=== PATIENT | male | born 1940 | race Caucasian/White ===

== ENCOUNTER 2018-12-29 07:57 | Observation (INO) ==
--- NOTE | 2018-12-12 12:14 | PAT Medication Instructions ---
Medication Instructions Date of Service December 12, 2018 Home Medications aspirin [Aspir-81] 81 mg PO DAILY benazepril 40 mg PO QPM cholecalciferol (vitamin D3) 1,000 unit PO QAM cyanocobalamin (vitamin B-12) 1,000 mcg PO DAILY finasteride 5 mg PO QAM fluticasone-salmeterol [Advair 1 inh INHALATION DAILY hydrochlorothiazide 12.5 mg PO QAM labetalol 100 mg PO BID sgpmfrwa-vic-AT-lycopen-lutein 1 tab PO DAILY omega 3-yhi-hrq-fish oil [Fish Oil] 1 cap PO DAILY simvastatin 40 mg PO PM tamsulosin [Flomax] 0.4 mg PO QAM ASK your prescriber and surgeon aspirin [Aspir-81] 81 mg PO DAILY STOP taking 2 weeks before surgery (or as soon as possible if surgery is within 2 weeks) omega 5-uuv-nge-fish oil [Fish Oil] 1 cap PO DAILY DO NOT take the morning of surgery cholecalciferol (vitamin D3) 1,000 unit PO QAM cyanocobalamin (vitamin B-12) 1,000 mcg PO DAILY hydrochlorothiazide 12.5 mg PO QAM multivit 1 tab PO DAILY Take morning of surgery With a small sip of water, OTHERWISE NOTHING TO EAT OR DRINK AFTER MIDNIGHT: tamsulosin [Flomax] 0.4 mg PO QAM Take evening before surgery benazepril 40 mg PO QPM fluticasone-salmeterol [Advair 1 inh INHALATION DAILY labetalol 100 mg PO BID simvastatin 40 mg PO PM Other Notes If you have any questions please call us at [phone] or [phone] or [phone] or [phone]
--- NOTE | 2018-12-12 12:18 | Anesthesiology Consultation ---
Date of Service December 12, 2018 Assessment & Plan (1) Encounter for pre-operative examination: Chart Review Chart Review: Patient seen in Pre Admission Testing Teaching & Discussion Pre-Anesthesia Teaching/Discussion Notes: Instructed NPO after midnight before surgery,except medications with 15 cc of water. Medication instructions provided according to the PAT guidelines. History Surgery Operation Date: 12/29/18 07:15 Proposed Procedures p Transurethral Resection of the Prostate - Shar Comer MD Height/Weight Height: 5 ft 6 in Weight: 74.389 kg Allergies Allergy/AdvReac Type Severity Reaction Status Date / Time No Known Allergies Allergy Verified 12/10/18 13:33 Medications Home Medications Medication Instructions Recorded Confirmed Last Taken aspirin [Aspir-81] 81 mg PO DAILY 12/10/18 12/10/18 Unknown benazepril 40 mg PO QPM 12/10/18 12/10/18 Unknown cholecalciferol (vitamin D3) 1,000 unit PO QAM 12/10/18 12/10/18 Unknown [Vitamin D3] cyanocobalamin (vitamin B-12) 1,000 mcg PO DAILY 12/10/18 12/10/18 Unknown [Vitamin B-12] finasteride 5 mg PO QAM 12/10/18 12/10/18 Unknown fluticasone-salmeterol [Advair 1 inh INHALATION DAILY 12/10/18 12/10/18 Unknown Diskus] hydrochlorothiazide 12.5 mg PO QAM 12/10/18 12/10/18 Unknown labetalol 100 mg PO BID 12/10/18 12/10/18 Unknown optfrulz-jwn-DF-lycopen-lutein 1 tab PO DAILY 12/10/18 12/10/18 Unknown [Centrum Silver Men] omega 7-ahh-yqi-fish oil [Fish Oil] 1 cap PO DAILY 12/10/18 12/10/18 Unknown simvastatin 40 mg PO PM 12/10/18 12/10/18 Unknown tamsulosin [Flomax] 0.4 mg PO QAM 12/10/18 12/10/18 Unknown Past Medical History Medical History Asthma STABLE Enlarged prostate History of kidney stones Hyperlipidemia Hypertension Past Surgical History Surgical History History of colonoscopy History of prostate surgery LASER History of shoulder surgery RIGHT ROTATOR CUFF TEAR Social History Smoking Status: Former smoker tobacco type: cigarettes Smoking cigarettes per day: QUIT 60 YRS AGO Do You Dip or Chew Tobacco: Yes (1 PACK WEEK - ADVISED NPO) Hx Alcohol Use: Yes Alcohol type: beer alcohol intake frequency: 0-2 drinks per day Hx Substance Use: No substance use type: does not use
--- NOTE | 2018-12-12 12:53 | Anesthesiology Consultation ---
Date of Service December 12, 2018 Assessment & Plan (1) Encounter for pre-operative examination: Chart Review Chart Review: Acceptable Risk for Surgery and Patient seen in Pre Admission Testing Consults Requested none Teaching & Discussion Pre-Anesthesia Teaching/Discussion Notes: Instructed NPO after midnight before surgery, except medications with 15 cc of water. Medication instructions provided according to the PAT guidelines. History Surgery Operation Date: 12/29/18 07:15 Proposed Procedures p Transurethral Resection of the Prostate - Shar Comer MD Height/Weight Height: 5 ft 6 in Weight: 72.1 kg Allergies Allergy/AdvReac Type Severity Reaction Status Date / Time No Known Allergies Allergy Verified 12/10/18 13:33 Medications Home Medications Medication Instructions Recorded Confirmed Last Taken aspirin [Aspir-81] 81 mg PO DAILY 12/10/18 12/10/18 Unknown benazepril 40 mg PO QPM 12/10/18 12/10/18 Unknown cholecalciferol (vitamin D3) 1,000 unit PO QAM 12/10/18 12/10/18 Unknown [Vitamin D3] cyanocobalamin (vitamin B-12) 1,000 mcg PO DAILY 12/10/18 12/10/18 Unknown [Vitamin B-12] finasteride 5 mg PO QAM 12/10/18 12/10/18 Unknown fluticasone-salmeterol [Advair 1 inh INHALATION DAILY 12/10/18 12/10/18 Unknown Diskus] hydrochlorothiazide 12.5 mg PO QAM 12/10/18 12/10/18 Unknown labetalol 100 mg PO BID 12/10/18 12/10/18 Unknown jixiexeb-wxf-JQ-lycopen-lutein 1 tab PO DAILY 12/10/18 12/10/18 Unknown [Centrum Silver Men] omega 9-naj-uuz-fish oil [Fish Oil] 1 cap PO DAILY 12/10/18 12/10/18 Unknown simvastatin 40 mg PO PM 12/10/18 12/10/18 Unknown tamsulosin [Flomax] 0.4 mg PO QAM 12/10/18 12/10/18 Unknown Past Medical History Medical History Asthma STABLE Enlarged prostate History of kidney stones Hyperlipidemia Hypertension Past Surgical History Surgical History H/O meniscectomy of right knee LEFT KNEE, NOT RIGHT History of colonoscopy History of prostate surgery LASER History of shoulder surgery RIGHT ROTATOR CUFF TEAR Past Anesthesia History No Hx of Anesthesia Complications and No Family Hx of Anesthesia Complications History of PONV No Motion Sickness Screening History of Motion Sickness: No Social History Smoking Status: Former smoker tobacco type: cigarettes Smoking cigarettes per day: QUIT 60 YRS AGO (when in service) Do You Dip or Chew Tobacco: Yes (1 PACK WEEK - ADVISED NPO) Hx Alcohol Use: Yes Alcohol type: beer alcohol intake frequency: 0-2 drinks per day Hx Substance Use: No substance use type: does not use Exercise / Class Metabolic Activity II 4-5 Yardwork/Stairs/Walk up hill (Walks 2-3 miles per day. Able to walk FOS. Denies CP or SOB. ) Review of Systems Patient denies chest pain, shortness of breath, dyspnea on exertion, joint pain , reflux, cough, palpitations. +wheezing Physical Exam Vital Signs BP: 144/80 P: 67 R: 18 T: 97.7 SPO2: 96% on RA ENMT Mouth: + poor dentition Thyromental Distance: > or= 3.5 Finger Breadths (4) Mallampati Class: II Neck normal visual inspection and trachea midline; neck extension not limited Respiratory normal respiratory effort Auscultation: lungs clear to auscultation bilaterally Cardiovascular Rate/Rhythm: regular rate and regular rhythm Heart Sounds: no murmur Vessels: no carotid bruit Neurologic moves all extremities Psychiatric Orientation: alert and oriented x 3 Testing Electrocardiogram Date: 12/12/18 Findings: + NSR @ (65) and + RBBB Chest X-Ray Date: 12/12/18 Findings: + NAD FINDINGS: Mild emphysematous change. Lungs are clear. Diaphragms are smooth. No significant cardiac enlargement. IMPRESSION: No acute process. Mild emphysematous change. Laboratory Results 12/12/18 13:11 12/12/18 13:11 Urine Color Yellow 12/12/18 13:11 Urine Appearance Clear (Clear) 12/12/18 13:11 Urine pH 6.5 (4.5-7.5) 12/12/18 13:11 Ur Specific [place] 1.025 (1.000-1.030) 12/12/18 13:11 Urine Protein Trace (Negative) H 12/12/18 13:11 Urine Glucose (UA) Negative (Negative) 12/12/18 13:11 Urine Ketones Negative (Negative) 12/12/18 13:11 Urine Nitrite Negative (Negative) 12/12/18 13:11 Ur Leukocyte Esterase Negative (Negative) 12/12/18 13:11 Urine RBC >30 /hpf (0-4) H 12/12/18 13:11 Urine WBC 0-5 /hpf (0-5) 12/12/18 13:11 Ur Epithelial Cells 0-5 /lpf (0-5) 12/12/18 13:11 12/12/18 13:11 Urine Culture - Final Urine,Clean Catch Gram negative bacilli
--- NOTE | 2018-12-12 13:37 | XRay Report ---
XR chest Pre-admission PA/Lat CLINICAL HISTORY: pat preoperative evaluation COMPARISON STUDY: No previous studies for comparison. FINDINGS: Mild emphysematous change. Lungs are clear. Diaphragms are smooth. No significant cardiac e nlargement. IMPRESSION: No acute process. Mild emphysematous change. The above report was generated using voice recognition software. It may contain grammatical, syntax or spelling errors. Electronically signed by: Alireza Sen M.D. 12/12/2018 1:35 PM
[2018-12-12 14:03] LABS: Basophils # (auto) 0.06 K/uL (0-0.2); Basophils % (auto) 0.6 %; Eosinophils # (auto) 0.28 K/uL (0-0.5); Hematocrit (blood only) 40.9 % (42-52); Hemoglobin 13.8 g/dL (14.0-18.0); Immature Granulocytes # (auto) 0.03 K/uL (0.00-0.02); Immature Granulocytes % (auto) 0.3 %; Lymphocytes # (auto) 1.05 K/uL (1.2-3.4); Lymphocytes % (auto) 11.3 %; Mean Corpuscular Hgb Conc 33.7 g/dL (32-36); Mean Corpuscular Volume 88.7 fL (80-100); Mean Platelet Volume 10.3 fL (7.4-10.4); Monocytes # (auto) 1.22 K/uL (0.11-0.59); Monocytes % (auto) 13.1 %; Neutrophils # (auto) 6.68 K/uL (1.4-6.5); Neutrophils % (auto) 71.7 %; Platelet Count 197 K/uL (130-400); RDW Coefficient of Variation 15.1 % (11.5-14.5); Red Blood Count 4.61 M/uL (4.7-6.1); White Blood Count 9.32 K/uL (4.8-10.8)
[2018-12-12 14:06] LABS: Appearance Urine Clear (Clear); Bilirubin Urine Negative (Negative); Color Urine Yellow; Glucose Urine UA Negative (Negative); Ketones Urine Negative (Negative); Leukocyte Esterase Urine Negative (Negative); Nitrite Urine Negative (Negative); Protein Urine Trace (Negative); Specific Gravity Urine 1.025 (1.000-1.030); Urobilinogen Urine Negative (Negative); pH Urine 6.5 (4.5-7.5)
[2018-12-12 14:19] LABS: RBC Urine >30 /hpf (0-4)
[2018-12-12 14:20] LABS: Bacteria Urine 1+ (Negative); WBC Urine 0-5 /hpf (0-5)
[2018-12-12 14:22] LABS: BUN Creatinine Ratio 20.7 (10-20); Calcium 9.5 mg/dl (8.5-10.1); Creatinine Clr Calc Pharmacy 50.3 ml/min; Est GFR (African American) 73.8; Est GFR (Non-African American) 63.7; Potassium 4.3 mmol/L (3.5-5.1)
[2018-12-12 14:23] LABS: Sperm Urine Present (None Prsent)
[~2018-12-29 07:57] MED LIST: CIPROFLOXACIN 400 MG/200 ML BAG IV SCH; LR 15ML/HR IV SCH
[2018-12-29] MEDS ORDERED: PHENYLEPHRINE 100MCG/ML 5ML SYR IV PRN (08:24)
[2018-12-29] MEDS ORDERED: ePHEDrine sulfate 50 MG/ML AMP IV PRN (08:24)
[2018-12-29] MEDS ORDERED: ONDANSETRON INJ 2 MG/ML 2 ML VIAL IV PRN ×2 (08:24→10:46)
[2018-12-29] MEDS ORDERED: HYDROmorphone INJ 1 MG/ML SYRINGE IV PRN (08:24)
[2018-12-29] MEDS ORDERED: ATROPINE SULFATE 0.1 MG/ML 10ML SYR IV PRN (08:24)
[2018-12-29] MEDS ORDERED: fentaNYL citrate 100 MCG/2 ML VIAL ONE (08:56)
[2018-12-29] MEDS ORDERED: PROPOFOL IV EMULSION 10 MG/ML 20 ML VIAL IV ONE (08:56)
[2018-12-29] MEDS ORDERED: MIDAZOLAM HCL 1 MG/ML 2ML VIAL ONE (08:56)
[2018-12-29] MEDS ORDERED: DEXAMETHASONE SOD INJ 4 MG/ML VIAL ONE (08:56)
[2018-12-29] MEDS ORDERED: ONDANSETRON INJ 2 MG/ML 2 ML VIAL ONE (08:56)
[2018-12-29] MEDS ORDERED: LIDOCAINE HCL 2% 2 ML VIAL/AMP(20MG/ML) INFIL ONE (08:56)
--- NOTE | 2018-12-29 08:59 | History & Physical Bridge Note ---
Date of Service December 29, 2018 History & Physical Bridge Note I have examined the patient, reviewed the History & Physical and in the interval since the performance of the History & Physical I have noted the following changes of clinical significance: no changes noted
--- NOTE | 2018-12-29 10:31 | Operative Report ---
Post Operative Report Pre & Post Diagnosis Operation Date: 12/29/18 09:15 Pre-Op Diagnosis: Benign Prostatic Hyperplasia with Urinary Obstruct Post-Op Diagnosis: Benign Prostatic Hyperplasia with Urinary Obstruct Procedure Operation Date: 12/29/18 09:15 Actual Procedures p Transurethral Resection of the Prostate(Not Applicable) - Shar Comer MD Surgeon Abraham Comer MD Info Analyst none Estimated Blood Loss 0 Findings Consistent with Post-Op Diagnosis Specimens None Description of Procedure Patient was identified in the preoperative holding area, appropriate informed consents reviewed and completed and the patient was transported to the operating suite. Upon arrival achieved appropriate preoperative antibiotics in the form of ciprofloxacin. Adequate general anesthesia was achieved, and the patient was placed in dorsal lithotomy position. Following sterile prep and drape and removal of his Hanna catheter, I inserted a 27 Danish resectoscope with 30 degree lens. Inspection revealed a healthy-appearing urethra. Upon reaching the sphincter, there began to be a notable scarring and inflammation from the catheter as well as his prior surgery. I was not able to readily identify the verumontanum, but I did note a large false passage protruding posteriorly that was well epithelialized and healed. I was able to identify significant redundant growth of the lateral lobes of the prostate as well as a tight and high bladder neck. Inspection of the bladder revealed no evidence of mucosal abnormalities aside from minor catheter cystitis. Following my inspection, I began by opening the lateral lobes of the prostate as well as the bladder neck - I chose to utilize a button electrode for vaporization. This generally improved visualization. I then worked to resect the predominant regrowth of the posterior floor of the prostate. As I flatten this out I attempted to try to flatten the area of the prior false passage, however this was not able to be fully achieved. It almost seems as though his posterior aspect of the lateral lobes is fused, and I am able to visualize the verumontanum underneath these areas but this is within what appears to now be a false passage. I flatten this maximally to allow catheter placement without difficulty, and I avoid encroachment upon the sphincter. After opening this maximally, I ensured meticulous hemostasis before concluding the case. I then inserted a 22 Danish catheter without difficulty. I irrigated the catheter to ensure that it was truly in the bladder and not within the false passage. I then concluded the case and the patient was extubated and taken to the PACU in stable condition. There were no complications. I attest to the content of the Intraoperative Record and any orders documented therein. Any exceptions are noted below.
[2018-12-29] MEDS ORDERED: HYDROCODONE/ACETAMOPHEN 5/325MG TAB PO PRN ×2 (10:46)
[2018-12-29] MEDS ORDERED: ACETAMINOPHEN 325 MG TAB PO PRN (10:46)
[2018-12-29] MEDS: fentaNYL citrate 100 MCG/2 ML VIAL IV PRN ×4 (11:03→11:27)
[2018-12-29 11:25] LABS: Basophils # (auto) 0.04 K/uL (0-0.2); Basophils % (auto) 0.4 %; Eosinophils # (auto) 0.27 K/uL (0-0.5); Eosinophils % (auto) 2.7 %; Hematocrit (blood only) 39.4 % (42-52); Immature Granulocytes # (auto) 0.05 K/uL (0.00-0.02); Immature Granulocytes % (auto) 0.5 %; Lymphocytes # (auto) 0.64 K/uL (1.2-3.4); Lymphocytes % (auto) 6.5 %; Mean Corpuscular Volume 89.7 fL (80-100); Mean Platelet Volume 9.8 fL (7.4-10.4); Monocytes # (auto) 0.77 K/uL (0.11-0.59); Monocytes % (auto) 7.8 %; Neutrophils # (auto) 8.12 K/uL (1.4-6.5); Neutrophils % (auto) 82.1 %; Platelet Count 155 K/uL (130-400); RDW Coefficient of Variation 15.2 % (11.5-14.5); RDW Standard Deviation 49.8 fL (36.4-46.3); Red Blood Count 4.39 M/uL (4.7-6.1); White Blood Count 9.89 K/uL (4.8-10.8)
[2018-12-29 11:40] LABS: BUN Creatinine Ratio 18.6 (10-20); Calcium 8.8 mg/dl (8.5-10.1); Creatinine Clr Calc Pharmacy 50.3 ml/min; Est GFR (African American) 73.8; Est GFR (Non-African American) 63.7; Potassium 4.2 mmol/L (3.5-5.1)
--- NOTE | 2018-12-29 11:52 | Anesthesiology Progress Note ---
Date of Service December 29, 2018 Anesthesia Post Procedure Vital Signs Vital Signs: Temp Pulse Pulse Resp BP BP Pulse Ox 12/29/18 11:45 63 12 146/82 H 98 12/29/18 11:35 36.4 C L 61 21 174/85 H 98 12/29/18 11:25 56 L 18 152/79 H 98 12/29/18 11:15 64 14 139/83 99 12/29/18 11:05 67 16 159/94 H 98 12/29/18 10:55 75 16 155/97 H 98 12/29/18 10:45 72 14 147/94 H 100 12/29/18 10:35 36.2 C L 82 12 151/77 H 99 12/29/18 08:17 36.6 C 67 20 171/85 H 95 Pain Intensity Penis: Pain Intensity: 4 Notes Mental Status: alert / awake / arousable Patient Amnestic to Procedure: Yes Nausea / Vomiting: adequately controlled Pain: adequately controlled Airway Patency, RR, SpO2: stable & adequate BP & HR: stable & adequate Hydration State: stable & adequate Anesthetic Complications: no major complications apparent
[2018-12-29] MEDS: LACTATED RINGER'S 1,000 ML IV SCH (13:50)
[2018-12-29] MEDS: LABETALOL HCL 100 MG TAB PO SCH (20:48)
[2018-12-29] MEDS ORDERED: SIMVASTATIN 40 MG TAB PO SCH (21:00)
[2018-12-29] MEDS ORDERED: ENALAPRIL MALEATE 10 MG TAB PO SCH (21:00)
[2018-12-29] MEDS: CIPROFLOXACIN 400 MG/200 ML BAG IV SCH (21:01)
[2018-12-30] MEDS: LACTATED RINGER'S 1,000 ML IV SCH (04:54)
--- NOTE | 2018-12-30 08:07 | Urology Progress Note ---
Date of Service December 30, 2018 Assessment & Plan (1) Urinary retention due to benign prostatic hyperplasia: POD#1 s/p TURP for urinary retention - VT now - home later presuming he voids well Subjective No issues overnight urine cleared appropriately no discomfort or pain Physical Exam 2 Vital Signs (Past 24 Hours): Last Vital Signs Temp 37.1 C 12/30/18 07:31 Pulse 72 12/30/18 07:31 Resp 18 12/30/18 07:31 BP 159/86 H 12/30/18 07:31 Pulse Ox 94 12/30/18 07:31 Physical Exam: NAD AAOx3 no resp distress rrr abd soft urine clear in tubing
--- NOTE | 2018-12-30 08:08 | Anesthesiology Progress Note ---
Date of Service December 30, 2018 Anesthesia Post Procedure Vital Signs Vital Signs: Temp Pulse Pulse Pulse Resp BP BP 12/30/18 07:31 37.1 C 72 18 159/86 H 156/88 H 12/30/18 03:15 36.5 C 71 16 141/74 H 12/29/18 22:55 36.6 C 77 16 139/71 12/29/18 20:39 93 H 155/69 H 12/29/18 19:05 36.9 C 92 H 16 151/65 H 12/29/18 15:00 37.1 C 90 18 151/75 H 12/29/18 14:00 82 16 128/67 12/29/18 12:56 75 16 140/74 12/29/18 12:33 69 16 165/80 H 12/29/18 12:00 36.9 C 66 14 151/79 H 12/29/18 11:45 63 12 146/82 H 12/29/18 11:35 36.4 C L 61 21 174/85 H 12/29/18 11:25 56 L 18 152/79 H 12/29/18 11:15 64 14 139/83 12/29/18 11:05 67 16 159/94 H 12/29/18 10:55 75 16 155/97 H 12/29/18 10:45 72 14 147/94 H 12/29/18 10:35 36.2 C L 82 12 151/77 H 12/29/18 08:17 36.6 C 67 20 171/85 H Pulse Ox 12/30/18 07:31 94 12/30/18 03:15 96 12/29/18 22:55 94 12/29/18 20:39 12/29/18 19:05 93 12/29/18 15:00 93 12/29/18 14:00 94 12/29/18 12:56 94 12/29/18 12:33 95 12/29/18 12:00 97 12/29/18 11:45 98 12/29/18 11:35 98 12/29/18 11:25 98 12/29/18 11:15 99 12/29/18 11:05 98 12/29/18 10:55 98 12/29/18 10:45 100 12/29/18 10:35 99 12/29/18 08:17 95 Pain Intensity Penis: Pain Intensity: 1 Lower Abdomen: Pain Intensity: 1 Notes Mental Status: alert / awake / arousable and participated in evaluation Nausea / Vomiting: adequately controlled Pain: adequately controlled Airway Patency, RR, SpO2: stable & adequate BP & HR: stable & adequate Hydration State: stable & adequate Anesthetic Complications: Pt Satisfied with anesthetic care
[2018-12-30 08:40] LABS: Hematocrit (blood only) 39.7 % (42-52); Hemoglobin 13.5 g/dL (14.0-18.0); Mean Corpuscular Volume 88.8 fL (80-100); Platelet Count 159 K/uL (130-400); RDW Coefficient of Variation 15.1 % (11.5-14.5); Red Blood Count 4.47 M/uL (4.7-6.1); White Blood Count 16.92 K/uL (4.8-10.8)
[2018-12-30] MEDS ORDERED: hydroCHLOROthiazide 25 MG TAB PO SCH (09:00)
[2018-12-30] MEDS ORDERED: FLUTICASONE/SALMETEROL 250/50 (ADVAIR) 14 PUFF/1 INHALER INH SCH (09:00)
[2018-12-30 09:06] LABS: Basophils # (auto) 0.02 K/uL (0-0.2); Basophils % (auto) 0.1 %; Eosinophils # (auto) 0.08 K/uL (0-0.5); Eosinophils % (auto) 0.5 %; Immature Granulocytes # (auto) 0.08 K/uL (0.00-0.02); Immature Granulocytes % (auto) 0.5 %; Lymphocytes # (auto) 1.79 K/uL (1.2-3.4); Lymphocytes % (auto) 10.6 %; Monocytes # (auto) 1.23 K/uL (0.11-0.59); Monocytes % (auto) 7.3 %; Neutrophils # (auto) 13.72 K/uL (1.4-6.5)
[2018-12-30 09:23] LABS: BUN Creatinine Ratio 15.1 (10-20); Calcium 8.9 mg/dl (8.5-10.1); Creatinine Clr Calc Pharmacy 50.8 ml/min; Est GFR (African American) 74.7; Est GFR (Non-African American) 64.4; Potassium 3.8 mmol/L (3.5-5.1)
[2018-12-30] MEDS: LABETALOL HCL 100 MG TAB PO SCH (09:37)
[2018-12-30] MEDS: CIPROFLOXACIN 400 MG/200 ML BAG IV SCH (10:16)
--- NOTE | 2019-01-08 10:08 | Discharge Summary ---
Date of Service January 08, 2019 Principal Diagnosis urinary retention; BPH Discharge Data Allergies Allergy/AdvReac Type Severity Reaction Status Date / Time No Known Allergies Allergy Verified 12/29/18 08:10 Procedures Performed Operation Date: 12/29/18 09:15 Actual Procedures p Transurethral Resection of the Prostate(Not Applicable) - Shar Comer MD Hospital Course (1) Urinary retention due to benign prostatic hyperplasia: Admitted for TURP - tolerated procedure very well - progressed appropriately overnight - passed a voiding trial on the morning of POD#1 - d/c home in stable condition Total Time Total Time Spent Total Time Spent (In Minutes): 30 Total Time Includes: Examination of the Patient and Discharge Planning Discharge Plan Discharge Items Patient Disposition: Home - Self-Care Reason For Visit: Benign Prostatic Hyperplasia with Urinary Obstruct Discharge Diagnosis: Benign Prostatic Hyperplasia with Urinary Obstruction Discharge Goals: Improve function, Prevent disease and Therapeutic intervention Activity: As commented below Activity Comment: Gradually increase to your previous activity. Lifting: Gradually increase as tolerated Bathing: No limitations Sexual Activity: Wait until after follow-up appointment Exercise/Sports: Gradually increase as tolerated Driving/Machine Use: Resume 1 day after discharge Non-emergency contact: Urologist Call non-emergency contact if: you have any medication questions, your symptoms worsen, your pain is concerning for you and your temperature is above 101 Follow-up/Referrals: Howie Woodruff [Primary Care Provider] - Diet: Regular Addtl Provider Instructions: Please keep all follow-up appointments as scheduled. Please contact our office at [phone] with any concerns, questions or need to change appointment times for any reason. Call this number [phone] to be connected with a Urologist wagon driver. It is normal to see blood in your urine over the course of the next month to 6 weeks. If you have significant burning with urination, you can use pyridium/AZO ( available over the counter). Please note this may turn your urine bright orange in color. Continue Flomax (new Rx sent) until follow up appointment. Discontinue Finasteride. Take bladder medicine (Trospium) twice daily as needed for bothersome urinary frequency or bladder pain. Please use stool softener (Colace) twice a day for the first two weeks to prevent constipation and straining. You can then use it as needed after that. Finish antibiotic (Cipro) completely. When your urine is clear (no blood) for 48 hours, you can resume taking daily Aspirin and Fish Oil. Call office with any questions/concerns. Prescriptions: New tamsulosin [Flomax] 0.4 mg capsule 0.4 mg PO DAILY Qty: 30 RF: 0 docusate sodium [Colace] 100 mg capsule 100 mg PO BID PRN (Reason: constipation) Qty: 60 RF: 0 trospium 20 mg tablet 20 mg PO BID PRN (Reason: urinary frequency) Qty: 20 RF: 0 Continue labetalol 200 mg Tablet 100 mg PO BID RF: 0 cyanocobalamin (vitamin B-12) [Vitamin B-12] 1,000 mcg Tablet 1,000 mcg PO DAILY RF: 0 simvastatin 40 mg Tablet 40 mg PO PM RF: 0 hydrochlorothiazide 12.5 mg Capsule 12.5 mg PO QAM RF: 0 benazepril 40 mg Tablet 40 mg PO QPM RF: 0 cholecalciferol (vitamin D3) [Vitamin D3] 1,000 unit Capsule 1,000 unit PO QAM RF: 0 inqdifmp-hea-YL-lycopen-lutein [Centrum Silver Men] 300-600-300 mcg Tablet 1 tab PO DAILY RF: 0 tamsulosin [Flomax] 0.4 mg Capsule 0.4 mg PO QAM RF: 0 fluticasone-salmeterol [Advair Diskus] 250-50 mcg/dose Blister With Device 1 inh INHALATION DAILY RF: 0 Discontinued aspirin [Aspir-81] 81 mg Tablet,Delayed Release (Dr/Ec) 81 mg PO DAILY RF: 0 finasteride 5 mg Tablet 5 mg PO QAM RF: 0 omega 5-wbs-ggh-fish oil [Fish Oil] 1,000 mg (120 mg-180 mg) Capsule 1 cap PO DAILY RF: 0 Stand-Alone Forms: [facility] Discharge Orders: Discharge Order (Routine); Ordered 12/30/18 Ordered By: Kaia Burns Admission Data Admit Date/Time: 12/29/18 10:46 Attending Provider: Shar Comer Admit Provider: Shar Comer Primary Care Provider: Howie Woodruff Service: Surgical Services Other Interventions: Discharge Summary Assessment (RN) Last Done: 12/30/18 11:40 Pending Studies at Discharge: Yes Studies:: pathology DC Date/Time DO NOT enter until pt leaves facility: 12/30/18 13:31
== END 2018-12-30 13:31 | disposition home or self-care (01) ==
LOC: ASU 07:57 → 3W 07:57